=== PATIENT | male | born 1935 | race Caucasian/White ===

== ENCOUNTER → 2022-01-14 | Outpatient (REF) | payer MEDICARE, BC | LOC: M LAB REF 16:35 | PROVIDERS: ATTEND Nurse Practitioner Family | DX: E11.65 Type 2 diabetes mellitus with hyperglycemia (principal) ==

== ENCOUNTER → 2022-07-28 | Outpatient (REF) | payer MEDICARE, BC ==
[2022-07-28 19:19] LABS: CREATININE, URINE 97.6 MG/DL; MALB URINE SIEMENS 37.3 MG/L; MAU/CREAT RATIO 38.2 MCG/MG (0.0-30.0)
== END ==
LOC: M LAB REF 17:05
PROVIDERS: ATTEND Nurse Practitioner Family
DX: E11.65 Type 2 diabetes mellitus with hyperglycemia (principal)